=== PATIENT | male | born 1955 | race Caucasian/White ===

== ENCOUNTER 2020-04-25 09:05 | Emergency (ER) | payer OTHER, SELFPAY ==
[2020-04-25] VITALS (22 sets, daily range): BP systolic 115–176; BP diastolic 83–106; PULSE 52–58; RESP 8–30; TEMP 36.8; O2SAT 98–100
--- NOTE | 2020-04-25 09:51 | PC.NURSE ---
IV and blood attempt x 4 with 2 different RNs with no success. IV therapy called and will be down in 10minutes to assist. EDP notified in delay of labs and IV fluids.
[2020-04-25 10:03] LABS: Add Urine Microscopic? YES; Amorphous Sediment Urine Few; Appearance Urine Turbid (Clear); Bilirubin Urine Negative (Negative); Color Urine Yellow (Yellow); Glucose Urine UA Negative (Negative); Ketones Urine Negative (Negative); Leukocyte Esterase Ur 3+ LEU/UL (Negative); Mucus Urine Rare /lpf; Nitrate Urine Positive (Negative); Protein Urine 1+ mg/dL (Negative); Specific Grav Ur 1.006 (1.001-1.035); Squamous Epithelial Cell Urine Many /hpf (Few); Urobilinogen Urine Negative mg/dL (<2.0); WBC Urine >75 /hpf
[2020-04-25 10:04] LABS: Blood Urine Negative (Negative)
--- NOTE | 2020-04-25 10:43 | PC.NURSE ---
Iv access called, they have been delayed and will be down shortly. EDP was notified and okayed delay
--- NOTE | 2020-04-25 10:56 | ED.GENADULT ---
HPI - General Adult General Chief complaint: Recheck/Abnormal Lab/Rx Stated complaint: High BP Time Seen by Provider: 04/25/20 09:10 Source: patient, EMS, RN notes reviewed and old records reviewed Mode of arrival: EMS Limitations: no limitations and dementia History of Present Illness HPI narrative: Patient is a 64-year-old male who presents to emergency department for evaluation of [facility] that was found this morning patient did not receive his medications for this morning was sent him to emergency department for evaluation upon arrival to emergency department patient is alert and oriented to self and location has no complaints resting comfortably in the room Per nursing patient did not receive his morning medications at the [facility] patient has no complaints on arrival Related Data Home Medications Medication Instructions Recorded Confirmed aspirin 81 mg PO DAILY 03/31/19 baclofen mg 04/25/20 carvedilol 04/25/20 famotidine 04/25/20 ferrous sulfate mg 04/25/20 furosemide 04/25/20 gabapentin 04/25/20 meloxicam 04/25/20 oxybutynin chloride 04/25/20 polyethylene glycol 3350 04/25/20 polyvinyl alcohol [Artificial drp 04/25/20 Tears (polyvin alc)] risperidone mg 04/25/20 tramadol mg 04/25/20 venlafaxine mg PO 04/25/20 Allergies Allergy/AdvReac Type Severity Reaction Status Date / Time latex Allergy Mild HIVES Verified 04/25/20 09:09 meperidine Allergy Unknown Unknown Verified 04/25/20 09:09 morphine Allergy Unknown Unknown Verified 04/25/20 09:09 Review of Systems Review of Systems: All systems reviewed & are unremarkable except as noted in HPI and below PMFSH Past Medical History Medical History Encephalopathy Hypotension Immobile, syndrome paraplegic Myocardial infarction Pneumonia Suprapubic catheter UTI (urinary tract infection) Surgical History Surgical History No significant past surgical history Social History Social History (Updated 04/25/20 @ 10:57 by Aakash Sun PA-C) Smoking status: Never smoker Exam Narrative: Exam Narrative: GENERAL: Chronically ill appearing, obese, and in no acute distress. HEAD: Normocephalic, atraumatic. EYES: PERRLA and EOMI. ENT: Nares clear, no rhinorrhea or epistaxis. Mucous membranes dry NECK: Supple. No adenopathy or masses. CHEST: Clear to auscultation. No respiratory distress. No wheezes rales or rhonchi HEART: Regular rate and rhythm. No murmur heard. Normal peripheral pulses. ABDOMEN: Soft, nontender, nondistended EXTREMITIES: Normal range of motion. No edema. SKIN: Warm, dry, no rash. NEURO: No focal deficits. Alert and oriented x2. Normal speech. Cranial nerves II through XII grossly intact PSYCH: Normal mood and affect. Course Course Emergency Course: Patient evaluated in the emergency department no high risk changes was given some fluids will be discharged back to after also being treated for urinary tract infection patient is otherwise been resting comfortably in no distress and is felt appropriate return to [facility] Vital Signs Vital signs: Vital Signs Temperature 98.2 F 04/25/20 09:03 Pulse Rate 55 L 04/25/20 09:03 Respiratory Rate 19 04/25/20 09:03 Blood Pressure 149/97 H 04/25/20 09:03 Pulse Oximetry 100 04/25/20 09:03 Temperature 98.2 F 04/25/20 09:03 Pulse Rate 54 L 04/25/20 10:47 Respiratory Rate 9 L 04/25/20 10:47 Blood Pressure 145/91 H 04/25/20 10:47 Pulse Oximetry 98 04/25/20 10:31 Medical Decision Making [facility] Narrative Medical decision making narrative: Patient was sent for blood pressure which has been well controlled in the emergency department afebrile nontoxic-appearing no distress no other high risk changes in the blood work or imaging will be treated for urinary tract infection given fluids and antibiotics
--- NOTE | 2020-04-25 10:58 | PC.NURSE ---
IV therapy arrived to ED
--- NOTE | 2020-04-25 11:15 | PC.NURSE ---
received bedside report from Oriana AGUIRRE. patient sent from [place] with reported elevated BP. ok here. difficult IV stick. labs delayed. IV nurse at bedside now with ultrasound to place line and get labs.
[2020-04-25 11:33] LABS: Basophils Percent Auto 0.4 % (0.2-1.2); Eosinophils Absolute Auto 0.1 K/mm3 (0-0.3); Eosinophils Percent Auto 2.1 % (0-4.4); Hematocrit 44.5 % (42.0-52.0); Hemoglobin 14.9 g/dL (14.0-18.0); Immature Granulocyte Absolute 0.01 K/mm3 (0.00-0.031); Immature Granulocyte Percent A 0.2 % (0-0.5); Lymphocytes Absolute Auto 1.52 K/mm3 (0.9-3.2); Mean Corpuscular HGB Conc 33.5 g/dl (32-36); Mean Corpuscular Hemoglobin 31.6 pg (26-34); Mean Corpuscular Volume 94.3 fl (80-100); Mean Platelet Volume 10.4 fl (7.4-10.4); Monocytes Absolute Auto 0.4 K/mm3 (0.1-0.6); Monocytes Percent Auto 6.9 % (2.6-8.5); Neutrophils Absolute Auto 3.2 K/mm3 (1.3-6.7); Neutrophils Percent Auto 61.4 % (45.5-73.1); Platelet Count Result 179 k/mm3 (150-375); Red Blood Count 4.72 M/mm3 (4.6-6.20); Red Cell Distribution Width 13.8 % (11.5-14.5); White Blood Count 5.2 K/mm3 (4.5-10.0)
--- NOTE | 2020-04-25 11:40 | PC.NURSE ---
IVF started. patient aware of plan. has call light in hand. assisted with TV.
[2020-04-25] MEDS: SODIUM CHLORIDE 0.9% IV 500 ML 999 ML IV CONT (11:45)
[2020-04-25 11:47] LABS: Anion Gap 3 mmol/L (8-16); Blood Urea Nitrogen 6 mg/dL (9-20); Calcium 9.2 mg/dL (8.4-10.2); Carbon Dioxide 30 mmol/L (22-30); Chloride 106 mmol/L (98-107); Estimated Glomerular Filt Rate > 60; Glucose 107 mg/dL (75-110); Potassium 4.3 mmol/L (3.4-5.0); Sodium 139 mmol/L (137-145)
--- NOTE | 2020-04-25 12:16 | PC.NURSE ---
patient being released back to facility. IVF almost done. IV antibiotic continues. calling EMS for transport.
== END 2020-04-25 13:13 ==
PROVIDERS: Emergency Medicine Emergency Medical Services; Emergency Provider Emergency Medicine
DX: N39.0 Urinary tract infection, site not specified (principal); I25.2 Old myocardial infarction; Z79.82 Long term (current) use of aspirin
CPT/HCPCS: 36415; 80048; 81001; 85025; 87086; 87088; 96365; 99284; J0696; J7040

== ENCOUNTER 2020-08-15 23:53 | Emergency (ER) | payer OTHER, SELFPAY ==
--- NOTE | 2020-08-15 23:49 | PC.NURSE ---
called the [facility] to get report on the patient that ems was bringing in. spoke with nurse krunal, who told me that she was told at approx 2230 that the patient did not look well, she said she went to check on him at 2300 and found to be having labored breathing, pale, cold, o2 sat was 58% on room air. she also said the patient heart rate was 147-160 bpm. the only sickness she noticed was last night he had nausea and vomiting. she placed the patient on 5L on 02 and called ems.
[2020-08-15 23:52] VITALS: PULSE 96; RESP 18
[2020-08-16 00:05] VITALS: BP 71/15; PULSE 0
[2020-08-16 00:10] VITALS: BP 71/15; PULSE 79; RESP 23
--- NOTE | 2020-08-16 00:26 | ED.GENADULT ---
HPI - General Adult General Chief complaint: Unspecified Stated complaint: Respiratory distress Time Seen by Provider: 08/16/20 00:04 History of Present Illness HPI narrative: Patient is a 65-year-old gentleman who presents the emergency department with chief complaint of altered mental status. Patient was sent from a local extended care facility and has history of paraplegia and sepsis. Patient has been progressively declining over the last 24 hours and had nausea and vomiting yesterday. Per the assisted the patient apparently did not look good throughout the day and this evening became progressively more altered. EMS was called and the patient was having agonal respirations and not able to provide any history. Upon arrival to the emergency department as orders were being placed the patient lost a pulse. The patient had a large amount of coffee-ground emesis during the resuscitative efforts Related Data Home Medications Medication Instructions Recorded Confirmed aspirin 81 mg PO DAILY 03/31/19 baclofen mg 04/25/20 carvedilol 04/25/20 famotidine 04/25/20 ferrous sulfate mg 04/25/20 furosemide 04/25/20 gabapentin 04/25/20 meloxicam 04/25/20 oxybutynin chloride 04/25/20 polyethylene glycol 3350 04/25/20 polyvinyl alcohol [Artificial drp 04/25/20 Tears (polyvin alc)] risperidone mg 04/25/20 tramadol mg 04/25/20 venlafaxine mg PO 04/25/20 Allergies Allergy/AdvReac Type Severity Reaction Status Date / Time latex Allergy Mild HIVES Verified 04/25/20 09:09 meperidine Allergy Unknown Unknown Verified 04/25/20 09:09 morphine Allergy Unknown Unknown Verified 04/25/20 09:09 Review of Systems Review of Systems: ROS unobtainable: Yes unobtainable due to medical condition and unobtainable due to mental status PMFSH Past Medical History Medical History Encephalopathy Hypotension Immobile, syndrome paraplegic Myocardial infarction Pneumonia Suprapubic catheter UTI (urinary tract infection) Surgical History Surgical History No significant past surgical history Social History Social History Smoking status: Never smoker Course Course Emergency Course: ACLS was performed for 30 minutes The patient was pronounced at 0021 No return of spontaneous circulation Procedures Intubation Intubation #1: Intubation Date: 08/16/20 Intubation Time: 00:15 Time out performed: No sedative: none Laryngoscope: fiber optic video scope Tube Size (cm): 7.5 Method of Intubation: orotracheal Number of Attempts: 1 Tube Secured Location: lips Tube Placement Confirmation: visualized tube passing through cords, equal breath sounds bilaterally, no breath sounds over epigastrium and confirmation by capnometry Patient Tolerated Procedure: well Intubation Complications: none Other Procedure Procedure 1: Other Procedure: Bedside cardiac ultrasound was performed that showed no cardiac activity Discharge Plan Discharge Clinical Impression: Cardiopulmonary arrest Patient Disposition: Condition: Prescriptions: No Action aspirin 81 mg Tablet,Chewable 81 mg PO DAILY RF: 0 polyethylene glycol 3350 17 gram powder in packet RF: 0 meloxicam 15 mg tablet RF: 0 polyvinyl alcohol [Artificial Tears (polyvin alc)] 1.4 % drops RF: 0 venlafaxine 150 mg capsule,extended release 24hr PO RF: 0 tramadol 50 mg tablet RF: 0 carvedilol 3.125 mg tablet RF: 0 baclofen 20 mg tablet RF: 0 famotidine 20 mg tablet RF: 0 ferrous sulfate 325 mg (65 mg iron) tablet RF: 0 gabapentin 300 mg capsule RF: 0 furosemide 20 mg tablet RF: 0 o
[2020-08-16 00:58] LABS: Glucose Point of Care 121 mg/dl (65-105)
--- NOTE | 2020-08-21 07:54 | PC.NURSE ---
Contacted Cem Thomas regarding arrangement. Cem reports he has made arrangements for cremation with [facility] [address] in [place], [place]. [facility] contacted at . Carola Dunlap reports patient will be picked up today. Security aware.
== END 2020-08-16 00:21 | disposition expired ==
PROVIDERS: Emergency Provider Emergency Medicine
DX: I46.9 Cardiac arrest, cause unspecified (principal); G93.40 Encephalopathy, unspecified; M62.3 Immobility syndrome (paraplegic); I25.2 Old myocardial infarction; Z87.440 Personal history of urinary (tract) infections
CPT/HCPCS: 31500; 82948; 92950; 99285; A9270; J0171; J2001; J7030